=== PATIENT | male | born 1945 | race Caucasian/White ===

== ENCOUNTER → 2020-04-04 | Outpatient (CLI) | payer MEDICARE, BC, OTHER ==
[~2020-04-04] MED LIST: ASPIRIN 81M81 MG/TA2 PO; ASPIRIN E.C. 8181 MG PO; CALCIUM500 MG PO; CARDIZEM120 MG PO; CORDARONE200 MG/TAB PO; ENALAPRIL10 MG PO; FOLIC ACID 40400 MCG PO; FOLIC ACID800 MCG PO; LIPITOR20 MG PO; MULTAQ400 MG PO; OMEGA 31000 MG; OMEGA 31000 MG PO; VASOTEC 10M10 MG/TAB PO; VITAMIN C BUFF500 MG PO; VITAMIN C500 MG PO; VITAMIN E1000 U/CAP PO; XARELTO20 MG PO; ZOCOR40 MG PO
== END ==
LOC: COL.RAD 07:16
DX: Z01.812 Encounter for preprocedural laboratory examination (principal); I71.2 Thoracic aortic aneurysm, without rupture
CPT/HCPCS: Q9967